=== PATIENT | male | born 1955 | race Caucasian/White ===

== ENCOUNTER 2024-11-13 09:42 | Emergency (ER) | payer MEDICARE ==
[2024-11-13] MEDS ORDERED: Sodium Chloride 0.9% 10 ML Syringe FLUSH PRN (10:10)
[2024-11-13 10:19] LABS: BASOPHILS ABSOLUTE AUTO 0.01 10^3/uL (0.00-0.10); BASOPHILS PERCENT AUTO 0.2 % (0.0-1.0); EOSINOPHILS ABSOLUTE AUTO 0.02 10^3/uL (0.10-0.30); EOSINOPHILS PERCENT AUTO 0.4 % (1.0-3.0); IMMATURE GRAN ABSOLUTE AUTO 0.01 10^3/uL (0.00-0.04); IMMATURE GRAN PERCENT AUTO 0.2 % (0.0-0.4); LYMPHOCYTES ABSOLUTE AUTO 0.40 10^3/uL (1.00-4.00); LYMPHOCYTES PERCENT AUTO 7.3 % (20.0-40.0); MEAN PLATELET VOLUME 11.7 fL (7.4-10.4); MONOCYTES ABSOLUTE AUTO 0.44 10^3/uL (0.10-0.80); MONOCYTES PERCENT AUTO 8.1 % (2.0-8.0); NEUTROPHILS ABSOLUTE AUTO 4.57 10^3/uL (2.50-7.00); NEUTROPHILS PERCENT AUTO 83.8 % (50.0-70.0); PLATELET COUNT,PLT 104 10^3/uL (150-400); RED BLOOD CELL COUNT 3.70 10^6/uL (4.50-6.00); RED CELL DISTRIBUTION WIDTH 15.6 % (11.5-14.5); WHITE BLOOD CELL COUNT,WBC 5.45 10^3/uL (5.00-10.00)
[2024-11-13 10:39] LABS: B-TYPE NATRIURETIC PEPTIDE,BNP 69 pg/mL (0-100)
[2024-11-13 10:43] LABS: LACTIC ACID 2.6 mmol/L (0.4-2.0)
[2024-11-13] MEDS: Ondansetron 4 MG/2 ML SDV IVPUSH ONE ×2 (10:44→13:46)
[2024-11-13] MEDS: Ondansetron 4 MG/2 ML SDV ONE ×2 (10:46→13:48)
[2024-11-13 10:48] LABS: ALANINE AMINOTRANSFERASE,ALT 35 U/L (14-63); ASPARTATE AMNIOTRANSFERASE,AST 70 U/L (15-37); BILIRUBIN TOTAL 3.6 mg/dL (0.2-1.0); BLOOD UREA NITROGEN,BUN 9 mg/dL (7-18); CARBON DIOXIDE,CO2 30.6 mmol/L (21.0-32.0); CHLORIDE,CL 107 mmol/L (98-107); CREATININE 0.53 mg/dL (0.51-1.17); EST CRCL DRUG DOSING (CG) 122.05 mL/min; GLUCOSE RANDOM 138 mg/dL (70-140); POTASSIUM,K 3.6 mmol/L (3.5-5.1); PROTEIN TOTAL,TP 7.4 g/dL (6.4-8.2); SODIUM,NA 146 mmol/L (136-145)
[2024-11-13 10:49] LABS: ESTIMATED GFR 110 mL/min (>=60)
[2024-11-13 11:10] LABS: INR 1.2 (0.9-1.1)
[2024-11-13] MEDS: Iopamidol 755 Mg/ML 100 ML Bottle IV ONE (11:54)
[2024-11-13 12:15] LABS: APPEARANCE,URINE CLEAR (CLEAR); GLUCOSE,URINE 100 mg/dL (NEGATIVE); OCCULT BLOOD,URINE NEGATIVE (NEGATIVE)
[2024-11-13 12:18] LABS: EPITHELIAL CELLS,URINE RARE /LPF
[2024-11-13 14:22] LABS: AMPHETAMINES SCREEN, URINE NEGATIVE (NEGATIVE); COCAINE METABOLITES,URINE NEGATIVE (NEGATIVE); METHADONE SCREEN, URINE NEGATIVE (NEGATIVE); METHAMPHETAMINES SCREEN, URINE NEGATIVE (NEGATIVE); OXYCODONE SCREEN,URINE NEGATIVE (NEGATIVE); PCP SCREEN,URINE NEGATIVE (NEGATIVE); TCA SCREEN,URINE NEGATIVE (NEGATIVE); THC SCREEN,URINE 50 NG/ML POSITIVE (NEGATIVE)
[2024-11-13] MEDS: Promethazine 25 MG/ML SDV IM ONE (14:50)
[2024-11-13 15:51] VITALS: BP 162/94; PULSE 75
== END 2024-11-13 17:05 ==
LOC: KA.ED 09:42
DX: G93.40 Encephalopathy, unspecified (principal); I10 Essential (primary) hypertension; E03.9 Hypothyroidism, unspecified; F17.200 Nicotine dependence, unspecified, uncomplicated; R74.8 Abnormal levels of other serum enzymes; R79.89 Other specified abnormal findings of blood chemistry; Z79.890 Hormone replacement therapy; Z79.899 Other long term (current) drug therapy; Z86.19 Personal history of other infectious and parasitic diseases
CPT/HCPCS: 36415; 70450; 71045; 74177; 80053; 80305-QW; 81001; 82140; 82150; 82270; 83605; 83690; 83735; 83880; 84484; 85025; 85610; 85730; 86140; 87040; 93010; 96361; 96372; 96374; 96376; 99284; 99285-25; J2405; J2550; J7030; Q9967